=== PATIENT | female | born 1990 | race American Indian/Alaskan Native ===

== ENCOUNTER 2017-08-21 09:04 | Emergency (ER) | payer BC, OTHER ==
--- NOTE | 2017-08-21 09:13 | EDM.PDOC ---
ED HPI GENERAL MEDICAL PROBLEM - General Chief Complaint: Lower Extremity Injury/Pain Stated Complaint: BOIL ON RT KNEE; [id number] Time Seen by Provider: 08/21/17 09:13 Source of Information: Reports: Patient, RN, RN Notes Reviewed History Limitations: Reports: No Limitations - History of Present Illness INITIAL COMMENTS - FREE TEXT/NARRATIVE: Patient presents to the ER with c/o boils x2 to the right thigh. She states this has happened in the past and they were incised, drained, and packed. She was given antibiotics at that time. She states the pain began yesterday, possibly the day before. She denies fever, chills, sob, chest pain. She denies being bitten by an insect. Onset: Gradual Onset Date: 08/20/17 Location: Reports: Lower Extremity, Right Quality: Reports: Ache, Burning, Pressure, Same as Previous Episode Severity: Moderate Improves with: Reports: None Worsens with: Reports: None Associated Symptoms: Reports: No Other Symptoms Treatments TRANSPORTATION DIRECTOR: Reports: Acetaminophen Right Leg Pain Score (Numeric/FACES): 9 - Related Data Allergies Allergy/AdvReac Type Severity Reaction Status Date / Time No Known Allergies Allergy Verified 08/21/17 09:18 Home Meds: Home Meds . [No Known Home Meds] 11/04/13 [History] Past Medical History - Past Health History Medical/Surgical History: Denies Medical/Surgical History Endocrine/Metabolic History: Reports: Obesity/BMI 30+ Social & Family History - Family History Family Medical History: Noncontributory - Tobacco Use Smoking Status *Q: Never Smoker Years of Tobacco use: 1 Used Tobacco, but Quit: No Second Hand Smoke Exposure: Yes - Alcohol Use Days Per Week of Alcohol Use: 0 - Recreational Drug Use Recreational Drug Use: No - Living Situation & Occupation Living situation: Reports: Single, with Family Occupation: Employed ED ROS GENERAL - Review of Systems Review Of Systems: ROS reveals no pertinent complaints other than HPI. ED EXAM, SKIN/RASH Exam: See Below Exam Limited By: No Limitations General Appearance: Alert, WD/WN, No Apparent Distress Eye Exam: Bilateral Eye: Normal Inspection Ears: Normal External Exam, Normal Canal, Hearing Grossly Normal, Normal TMs Nose: Normal Inspection, Normal Mucosa, No Blood Throat/Mouth: Normal Inspection, Normal Lips, Normal Teeth, Normal Gums, Normal Oropharynx, Normal Voice, No Airway Compromise Head: Atraumatic, Normocephalic Neck: Normal Inspection, Supple, Non-Tender, Full Range of Motion Respiratory/Chest: No Respiratory Distress, Lungs Clear, Normal Breath Sounds, No Accessory Muscle Use, Chest Non-Tender Cardiovascular: Normal Peripheral Pulses, Regular Rate, Rhythm, No Edema, No Gallop, No JVD, No Murmur, No Rub Peripheral Pulses: 2+: Radial (L), Radial (R) GI/Abdominal: Normal Bowel Sounds, Soft, Non-Tender, No Organomegaly, No Distention, No Abnormal Bruit, No Mass (Female) Exam: Deferred Rectal (Female) Exam: Deferred Back Exam: Normal Inspection, Full Range of Motion, NT Extremities: Normal Range of Motion, No Pedal Edema, Leg Pain, Increased Warmth , Redness, Other (right thigh) Neurological: Alert, Oriented, Normal Cognition, Normal Gait, No Motor/Sensory Deficits Psychiatric: Normal Affect, Normal Mood Skin: Warm, Dry, Erythema Location, Skin: Lower Extremity, Right Characteristics: Erythematous Associated features: Warmth, Tenderness, Swelling Lymphatic: No Adenopathy ED SKIN PROCEDURES - I&D Skin Prep: Providone-Iodine (Betadine) Local Anesthesia: Lidocaine: 1% Plain Local Anesthetic Volume: 5cc Area Incised With: 11 Blade Drainage: Purulent, Bloody, Small Amount Probed to Break Up Loculations: Yes Packed With: 1/4 in. Iodoform Sterile Dressinx4(s) Complications: No Course - Vital Signs Last Recorded V/S: Last Vital Signs Temp 97.8 F 08/21/17 09:18 Pulse 114 H 08/21/17 09:18 Resp 18 08/21/17 09:18 BP 129/88 08/21/17 09:18 Pulse Ox 100 08/21/17 09:18 - Orders/Labs/Meds Orders: Active Orders 24 hr Category Date Time Status Peripheral IV Care [RC] . DIRECTED Care 08/21/17 10:08 Active CULTURE WOUND [RM] Stat Lab 08/21/17 10:27 Received Sodium Chloride 0.9% [Saline Flush] Med 08/21/17 10:08 Active 10 ml FLUSH ASDIRECTED PRN Vancomycin 1.5 gm Med 08/21/17 10:30 Active Sodium Chloride 0.9% [Normal Saline] 500 ml IV ONETIME Peripheral IV Insertion Adult [OM.PC] Stat Oth 08/21/17 10:08 Ordered Medication Orders Vancomycin HCl 1.5 gm/ Sodium (Chloride) 500 mls @ 334.014 mls/hr IV ONETIME ONE Stop: 08/21/17 11:59 Last Admin: 08/21/17 10:42 Dose: 334.014 mls/hr Sodium Chloride (Saline Flush) 10 ml FLUSH ASDIRECTED PRN PRN Reason: Keep Vein Open Last Admin: 08/21/17 10:42 Dose: 10 ml Meds: Medications Generic Name Dose Route Start Last Admin Trade Name Freq PRN Reason Stop Dose Admin Vancomycin HCl 1.5 gm/ Sodium 500 mls @ 334.014 mls/hr 08/21/17 10:30 10:42 Chloride IV 08/21/17 11:59 334.014 mls/hr ONETIME ONE Administration Sodium Chloride 10 ml 08/21/17 10:08 08/21/17 10:42 Saline Flush FLUSH 10 ml ASDIRECTED PRN Administration Keep Vein Open Discontinued Medications Generic Name Dose Route Start Last Admin Trade Name Freq PRN Reason Stop Dose Admin Vancomycin HCl 1.6 gm/ Sodium 250 mls @ 167 mls/hr 08/21/17 10:08 08/21/17 10 :33 Chloride IV 08/21/17 11:37 Not Given ONETIME ONE Lidocaine HCl 30 ml 08/21/17 09:45 08/21/17 10:02 Xylocaine-Mpf 1% INJECT 08/21/17 09:46 30 ml ONETIME ONE Administration Departure - Departure Time of Disposition: 12:00 Disposition: Home, Self-Care 01 Condition: Good Clinical Impression: Abscess of right leg - Discharge Information Instructions: Abscess, [id number], Incision and Drainage, Care After Forms: ED Department Discharge Additional Instructions: Rx: Bactrim DS Rx: Cephalexin 500mg Follow up with your primary care provider tomorrow. Change dressing/bandage twice daily. You may shower. If the packing falls out it is ok. This will be removed when rechecked tomorrow. - My Orders Last 24 Hours: My Active Orders 08/21/17 10:08 Peripheral IV Care [RC] . DIRECTED Sodium Chloride 0.9% [Saline Flush] 10 ml FLUSH ASDIRECTED PRN Peripheral IV Insertion Adult [OM.PC] Stat 08/21/17 10:27 CULTURE WOUND [RM] Stat 08/21/17 10:30 Vancomycin 1.5 gm Sodium Chloride 0.9% [Normal Saline] 500 ml IV ONETIME - Assessment/Plan Last 24 Hours: My Active Orders 08/21/17 10:08 Peripheral IV Care [RC] . DIRECTED Sodium Chloride 0.9% [Saline Flush] 10 ml FLUSH ASDIRECTED PRN Peripheral IV Insertion Adult [OM.PC] Stat 08/21/17 10:27 CULTURE WOUND [RM] Stat 08/21/17 10:30 Vancomycin 1.5 gm Sodium Chloride 0.9% [Normal Saline] 500 ml IV ONETIME
[2017-08-21 09:22] VITALS: BP 129/88
[2017-08-21] MEDS ORDERED: Lidocaine 1% 30 ML SDV INJECT ONE (09:45)
[2017-08-21] MEDS ORDERED: Sodium Chloride 0.9% 10 ML Syringe FLUSH PRN (10:08)
[2017-08-21] MEDS ORDERED: Vancomycin 1.6 GM in Sodium Chloride 0.9% 250 ML IV ONE (10:08)
[2017-08-21] MEDS ORDERED: Vancomycin 1.5 GM in Sodium Chloride 0.9% 500 ML IV ONE (10:30)
[2017-08-21] MEDS ORDERED: Acetaminophen 325 MG Tab PO ONE (12:20)
== END 2017-08-21 12:29 | disposition home or self-care (01) ==
LOC: DL.ED 09:04
DX: L02.415 Cutaneous abscess of right lower limb (principal); E66.9 Obesity, unspecified; Z68.42 Body mass index [BMI] 45.0-49.9, adult
CPT/HCPCS: 10061; 87070; 87077; 87186; 96365; 96366; 99283; A9270; J3370; J7040; J7050

== ENCOUNTER 2017-11-07 14:35 | Emergency (ER) | payer OTHER ==
[2017-11-07 14:45] VITALS: BP 138/89
--- NOTE | 2017-11-07 15:19 | EDM.PDOC ---
ED HPI GENERAL MEDICAL PROBLEM - General Chief Complaint: ENT Problem Stated Complaint: [id number] HAS A COLD Time Seen by Provider: 11/07/17 15:05 Source of Information: Reports: Patient History Limitations: Reports: No Limitations - History of Present Illness INITIAL COMMENTS - FREE TEXT/NARRATIVE: This 27 yo female patient reports to the ED with ED with a 2 day history of congestion. The patient took a dose of decongestant, but had no symptom relief. The patient reports she attempted to get into the [facility], but they were not taking appointments until next week and not taking walk-ins today. Onset Date: 11/06/17 Location: Reports: Head (congestion) Quality: Reports: Pressure Severity: Moderate Improves with: Reports: None Worsens with: Reports: None Associated Symptoms: Reports: No Other Symptoms Treatments CASTING COORDINATOR: Reports: Acetaminophen - Related Data Allergies Allergy/AdvReac Type Severity Reaction Status Date / Time No Known Allergies Allergy Verified 11/07/17 14:41 Home Meds: Home Meds . 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 - Infectious Disease History Infectious Disease History: Reports: Chicken Pox - Past Surgical History Female Surgical History: Reports: Section Social & Family History - Family History Family Medical History: Noncontributory - Tobacco Use Smoking Status *Q: Never Smoker Years of Tobacco use: 1 Used Tobacco, but Quit: No Month Tobacco Last Used: unknown Second Hand Smoke Exposure: No - Caffeine Use Caffeine Use: Reports: Coffee - Alcohol Use Days Per Week of Alcohol Use: 0 - Recreational Drug Use Recreational Drug Use: No - Living Situation & Occupation Living situation: Reports: Single, with Family Occupation: Employed ED ROS ENT - Review of Systems Review Of Systems: ROS reveals no pertinent complaints other than HPI. ED EXAM, ENT - Physical Exam Exam: See Below Exam Limited By: No Limitations General Appearance: Alert, WD/WN, No Apparent Distress, Obese Eye Exam: Bilateral Eye: EOMI, Normal Inspection, PERRL Ears: Normal External Exam, Normal Canal, Hearing Grossly Normal, Normal TMs Nose: Normal Inspection, Normal Mucousa, No Blood Mouth/Throat: Normal Inspection, Normal Gums, Normal Lips, Normal Oropharynx, Normal Teeth Head: Sinus Tenderness Neck: Normal Inspection, Supple, Non-Tender, Full Range of Motion Respiratory/Chest: No Respiratory Distress, Lungs Clear, Normal Breath Sounds, No Accessory Muscle Use, Chest Non-Tender Cardiovascular: Normal Peripheral Pulses, Regular Rate, Rhythm, No Edema, No Gallop, No JVD, No Murmur, No Rub GI/Abdominal: Normal Bowel Sounds, Soft, Non-Tender, No Organomegaly, No Distention, No Abnormal Bruit, No Mass, Other (obese) (Female) Exam: Deferred Rectal (Female) Exam: Deferred Back: Normal Inspection, Full Range of Motion Neurological: Alert, Oriented, CN II-XII Intact, Normal Cognition, Normal Gait, Normal Reflexes, No Motor/Sensory Deficits Psychiatric: Normal Affect, Normal Mood Skin: Warm, Dry, Intact, Normal Color, No Rash Lymphatic: No Adenopathy Course - Vital Signs Last Recorded V/S: Last Vital Signs Temp 36.6 C 11/07/17 14:43 Pulse 80 11/07/17 14:43 Resp 18 11/07/17 14:43 BP 138/89 11/07/17 14:43 Pulse Ox 99 11/07/17 14:43 Departure - Departure Time of Disposition: 15:20 Disposition: Home, Self-Care 01 Condition: Fair Clinical Impression: Sinusitis Qualifiers: Sinusitis location: maxillary Chronicity: acute Recurrence: non-recurrent Qualified Code(s): J01.00 - Acute maxillary sinusitis, unspecified - Discharge Information Instructions: Sinusitis, Adult, [id number] Care Plan Goals: The patient was advised of the examination results during the visit. The patient was given a script for Augmentin (875/125) to take 1 by mouth 2 times per day for 10 days. The patient may take over the counter medications for temporary symptom relief. If the patient has any additional symptoms or concerns , the patient should follow-up with her primary care facility or return to the ED.
== END 2017-11-07 15:25 | disposition home or self-care (01) ==
LOC: DL.ED 14:35
DX: J01.00 Acute maxillary sinusitis, unspecified (principal)
CPT/HCPCS: 99283

== ENCOUNTER 2018-08-24 22:51 | Emergency (ER) | payer OTHER ==
--- NOTE | 2018-08-24 23:12 | EDM.PDOC ---
ED HPI GENERAL MEDICAL PROBLEM - General Chief Complaint: Upper Extremity Injury/Pain Stated Complaint: FELL, PAIN-WC [id number] Time Seen by Provider: 08/24/18 23:09 Source of Information: Reports: Patient History Limitations: Reports: No Limitations - History of Present Illness INITIAL COMMENTS - FREE TEXT/NARRATIVE: slipped on wet floor fell onto low back with back pain and left hip area too. denies . got back up by self. Right Elbow Pain Score (Numeric/FACES): 8 - Related Data Allergies Allergy/AdvReac Type Severity Reaction Status Date / Time No Known Allergies Allergy Verified 08/24/18 23:39 Home Meds: Home Meds . 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 - Infectious Disease History Infectious Disease History: Reports: Chicken Pox - Past Surgical History Female Surgical History: Reports: Section Social & Family History - Family History Family Medical History: Noncontributory - Caffeine Use Caffeine Use: Reports: Coffee - Living Situation & Occupation Living situation: Reports: Single, with Family Occupation: Employed Review of Systems - Review of Systems Review Of Systems: ROS reveals no pertinent complaints other than HPI. ED EXAM, GENERAL - Physical Exam Exam: See Below Exam Limited By: No Limitations General Appearance: Alert, WD/WN, Mild Distress, Other (discomfort) Ears: Hearing Grossly Normal Throat/Mouth: Normal Voice, No Airway Compromise Head: Atraumatic Neck: Non-Tender, Full Range of Motion Respiratory/Chest: No Respiratory Distress Cardiovascular: Regular Rate, Rhythm GI/Abdominal: Soft, Non-Tender Back Exam: Paraspinal Tenderness, Other (left L3-4-5-S1 region, LLE NV wnl, gait limited to pain) Neurological: Alert, Oriented, Normal Cognition, No Motor/Sensory Deficits Psychiatric: Flat Affect Skin Exam: Warm, Dry, Normal Color Lymphatic: No Adenopathy Course - Vital Signs Last Recorded V/S: Last Vital Signs Temp 36.6 C 08/24/18 23:22 Pulse 90 08/24/18 23:22 Resp 18 08/24/18 23:22 BP 124/74 08/24/18 23:22 Pulse Ox 98 08/24/18 23:22 - Orders/Labs/Meds Meds: Medications Discontinued Medications Generic Name Dose Route Start Last Admin Trade Name Iqra PRN Reason Stop Dose Admin Hydrocodone Bitart/Acetaminophen 1 tab 08/25/18 01:20 08/25/18 01:29 [place] 325-10 Mg PO 08/25/18 01:21 1 tab ONETIME ONE Administration - Re-Assessments/Exams Free Text/Narrative Re-Assessment/Exam: 08/25/18 01:21 results discussed with pt. Departure - Departure Time of Disposition: 01:32 Disposition: Home, Self-Care 01 Condition: Good Clinical Impression: Lumbar contusion Qualifiers: Encounter type: initial encounter Qualified Code(s): S30.0XXA - Contusion of lower back and pelvis, initial encounter - Discharge Information Instructions: Contusion, [id number] Forms: ED Department Discharge Additional Instructions: 1) rest and avoid bending lifting straining next 48 hours 2) try ice or heat to sore areas 3) follow up at clinic rx given; flexeril 10mg bid to tid prn x 12
[2018-08-24 23:39] VITALS: BP 124/74
[2018-08-25] MEDS ORDERED: Acetaminophen/HYDROcodone 325-10 MG Tab PO ONE (01:20)
== END 2018-08-25 01:35 | disposition home or self-care (01) ==
LOC: DL.ED 22:51
DX: S30.0XXA Contusion of lower back and pelvis, initial encounter (principal); W01.0XXA Fall on same level from slipping, tripping and stumbling without subsequent striking against object, initial encounter
CPT/HCPCS: 72100; 73501; 99283; A9270

== ENCOUNTER 2019-10-26 04:00 | Emergency (ER) | payer OTHER ==
[2019-10-26 04:18] VITALS: BP 142/93; PULSE 82
--- NOTE | 2019-10-26 04:30 | EDM.PDOC ---
ED HPI GENERAL MEDICAL PROBLEM - General Chief Complaint: ENT Problem Stated Complaint: TOOTH PAIN Time Seen by Provider: 10/26/19 04:27 Source of Information: Reports: Patient History Limitations: Reports: No Limitations - History of Present Illness INITIAL COMMENTS - FREE TEXT/NARRATIVE: broke tooth while ago, got worse tonight Left Upper Oral/Mouth Pain Score (Numeric/FACES): 10 - Related Data Allergies Allergy/AdvReac Type Severity Reaction Status Date / Time No Known Allergies Allergy Verified 10/26/19 04:09 Home Meds: Home Meds Acetaminophen [Acetaminophen Extra Strength] 1,000 mg PO ASDIRECTED 10/26/19 [ History] Past Medical History - Past Health History Medical/Surgical History: Denies Medical/Surgical History Genitourinary History: Reports: 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 - Infectious Disease History Infectious Disease History: Reports: Chicken Pox - Past Surgical History Female Surgical History: Reports: Section Social & Family History - Family History Family Medical History: Noncontributory - Tobacco Use Smoking Status *Q: Current Every Day Smoker Years of Tobacco use: 2 Packs/Tins Daily: 0.2 Used Tobacco, but Quit: No Second Hand Smoke Exposure: No - Caffeine Use Caffeine Use: Reports: Coffee, Energy Drinks, Soda - Recreational Drug Use Recreational Drug Use: No - Living Situation & Occupation Living situation: Reports: Single, with Family Occupation: Employed ED ROS ENT - Review of Systems Review Of Systems: Comprehensive ROS is negative, except as noted in HPI. ED EXAM, ENT - Physical Exam Exam: See Below Exam Limited By: No Limitations General Appearance: Alert, WD/WN, Mild Distress, Other (pain) Ears: Hearing Grossly Normal Mouth/Throat: Dental Abcess, Dental Pain, Dental Tenderness, Other (left upper cannine broke with exposed root) Head: Atraumatic Neck: Non-Tender, Full Range of Motion Respiratory/Chest: No Respiratory Distress Cardiovascular: Regular Rate, Rhythm GI/Abdominal: Soft, Non-Tender Neurological: Alert, Oriented, Normal Cognition, Normal Gait, No Motor/Sensory Deficits Psychiatric: Tearful Skin: Warm, Dry, Normal Color Lymphatic: No Adenopathy Course - Vital Signs Last Recorded V/S: Last Vital Signs Temp 36.4 C 10/26/19 04:07 Pulse 82 10/26/19 04:07 Resp 18 10/26/19 04:07 BP 142/93 H 10/26/19 04:07 Pulse Ox 99 10/26/19 04:07 - Orders/Labs/Meds Orders: Active Orders 24 hr Category Date Time Status Acetaminophen/HYDROcodone [[place] 325-10 MG] Med 10/26/19 04:25 Once 1 tab PO ONETIME ONE Clindamycin HCl [Cleocin] Med 10/26/19 04:25 Once 150 mg PO ONETIME ONE Departure - Departure Time of Disposition: 04:29 Disposition: Home, Self-Care 01 Condition: Good Clinical Impression: Dental abscess, Dental caries - Discharge Information Instructions: Dental Abscess, [id number] Additional Instructions: 1) see DENTIST SUNDAY rx given; clindamycin 150mg qid x 40 - My Orders Last 24 Hours: My Active Orders 10/26/19 04:25 Acetaminophen/HYDROcodone [[place] 325-10 MG] 1 tab PO ONETIME ONE Clindamycin HCl [Cleocin] 150 mg PO ONETIME ONE - Assessment/Plan Last 24 Hours: My Active Orders 10/26/19 04:25 Acetaminophen/HYDROcodone [[place] 325-10 MG] 1 tab PO ONETIME ONE Clindamycin HCl [Cleocin] 150 mg PO ONETIME ONE
[2019-10-26] MEDS: Clindamycin HCl 150 MG Cap PO ONE (04:33)
[2019-10-26] MEDS: Acetaminophen/HYDROcodone 325-10 MG Tab PO ONE (04:34)
== END 2019-10-26 04:45 | disposition home or self-care (01) ==
LOC: DL.ED 04:00
DX: K04.7 Periapical abscess without sinus (principal); K02.9 Dental caries, unspecified; E66.9 Obesity, unspecified; Z68.42 Body mass index [BMI] 45.0-49.9, adult; F17.210 Nicotine dependence, cigarettes, uncomplicated
CPT/HCPCS: 99282; A9270

== ENCOUNTER 2020-01-08 03:43 | Emergency (ER) | payer OTHER ==
[2020-01-08 03:49] VITALS: BP 151/97; PULSE 80
[2020-01-08] MEDS ORDERED: Lidocaine 2% Viscous Solution 15 ML Cup PO ONE (03:58)
[2020-01-08] MEDS ORDERED: Clindamycin HCl 150 MG Cap PO ONE (03:58)
--- NOTE | 2020-01-08 04:04 | EDM.PDOC ---
ED HPI GENERAL MEDICAL PROBLEM - General Chief Complaint: ENT Problem Stated Complaint: TOOTH PAIN Time Seen by Provider: 01/08/20 03:45 Source of Information: Reports: Patient History Limitations: Reports: No Limitations - History of Present Illness INITIAL COMMENTS - FREE TEXT/NARRATIVE: This 29 yo female patient reports to the ED with right upper dental pain. The patient reports her tooth broke off 3-4 days ago, but yesterday afternoon she started to have increased pain. The patient reports she has taken Tylenol with little symptom relief. 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 BATHER: Reports: Acetaminophen Right Upper Gums Pain Score (Numeric/FACES): 10 - Related Data Allergies Allergy/AdvReac Type Severity Reaction Status Date / Time No Known Allergies Allergy Verified 01/08/20 03:49 Home Meds: Home Meds Acetaminophen [Acetaminophen Extra Strength] 1,000 mg PO ASDIRECTED 10/26/19 [ History] Past Medical History - Past Health History Medical/Surgical History: Denies Medical/Surgical History Genitourinary History: Reports: 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 - Infectious Disease History Infectious Disease History: Reports: Chicken Pox - Past Surgical History Female Surgical History: Reports: Section Social & Family History - Family History Family Medical History: Noncontributory - Tobacco Use Smoking Status *Q: Current Every Day Smoker Years of Tobacco use: 5 Packs/Tins Daily: 0.2 Second Hand Smoke Exposure: Yes - Caffeine Use Caffeine Use: Reports: Coffee, Energy Drinks, Soda - Recreational Drug Use Recreational Drug Use: No - Living Situation & Occupation Living situation: Reports: Single, with Family Occupation: Employed ED ROS ENT - Review of Systems Review Of Systems: Comprehensive ROS is negative, except as noted in HPI. ED EXAM, ENT - Physical Exam Exam: See Below Exam Limited By: No Limitations General Appearance: Alert, WD/WN, Mild Distress, Obese Eye Exam: Bilateral Eye: EOMI, Normal Inspection, PERRL Ears: Normal External Exam, Normal Canal, Hearing Grossly Normal, Normal TMs Nose: Normal Inspection, Normal Mucousa, No Blood Mouth/Throat: Dental Abcess, Dental Pain, Dental Tenderness Head: Atraumatic, Normocephalic Neck: Normal Inspection, Supple, Non-Tender, Full Range of Motion Respiratory/Chest: No Respiratory Distress, Lungs Clear, Normal Breath Sounds, No Accessory Muscle Use, Chest Non-Tender Cardiovascular: Normal Peripheral Pulses GI/Abdominal: Normal Bowel Sounds, Soft, Non-Tender, No Organomegaly, No Distention, No Abnormal Bruit, No Mass, Other (obese) (Female) Exam: Deferred Rectal (Female) Exam: Deferred Neurological: Alert, Oriented, CN II-XII Intact, Normal Cognition, Normal Gait Psychiatric: Normal Affect, Normal Mood Skin: Warm, Dry, Intact, Normal Color, No Rash Lymphatic: No Adenopathy Course - Vital Signs Last Recorded V/S: Last Vital Signs Temp 35.8 C L 01/08/20 03:45 Pulse 80 01/08/20 03:45 Resp 18 01/08/20 03:45 BP 151/97 H 01/08/20 03:45 Pulse Ox 100 01/08/20 03:45 - Orders/Labs/Meds Meds: Medications Discontinued Medications Generic Name Dose Route Start Last Admin Trade Name Iqra PRN Reason Stop Dose Admin Clindamycin HCl 300 mg 01/08/20 03:58 01/08/20 04:04 Cleocin PO 01/08/20 03:59 300 mg ONETIME ONE Administration Lidocaine HCl 15 ml 01/08/20 03:58 Xylocaine 2% Viscous PO 01/08/20 03:59 ONETIME ONE Departure - Departure Time of Disposition: 04:01 Disposition: Home, Self-Care 01 Condition: Fair Clinical Impression: Dental decay, Dental caries extending into dentin, Dental abscess - Discharge Information *PRESCRIPTION DRUG MONITORING PROGRAM REVIEWED*: Not Applicable *COPY OF PRESCRIPTION DRUG MONITORING REPORT IN PATIENT MARLEN: Not Applicable Instructions: Dental Abscess, [id number] Forms: ED Department Discharge Care Plan Goals: The patient was advised of the examination results during the visit. The patient was given a dose of Viscous Lidocaine and a dose of Clindamycin while in the ED. The patient was also given a script for Clindamycin (300 mg) to take 1 by mouth 4 times per day for 10 days and Viscous Lidocaine 2% #100 mL to use 5-10 mL on a cottonball applied to area every 6 hours as needed. The patient was encouraged to follow-up with a dentist early this week for continued evaluation and further management. If the patient has any additional symptoms or concerns, the patient should either follow-up with her primary care facility or return to the emergency department. Sepsis Event Note - Evaluation Sepsis Screening Result: No Definite Risk - Focused Exam Vital Signs: Vital Signs Temp Pulse Resp BP Pulse Ox 01/08/20 03:45 35.8 C L 80 18 151/97 H 100 Date Exam was Performed: 01/08/20 Time Exam was Performed: 04:05
== END 2020-01-08 04:09 | disposition home or self-care (01) ==
LOC: DL.ED 03:43
DX: K04.7 Periapical abscess without sinus (principal); K02.9 Dental caries, unspecified; E66.9 Obesity, unspecified; F17.210 Nicotine dependence, cigarettes, uncomplicated; Z68.42 Body mass index [BMI] 45.0-49.9, adult
CPT/HCPCS: 99282; A9270

== ENCOUNTER 2020-05-15 06:09 | Emergency (ER) | payer OTHER ==
[2020-05-15] MEDS ORDERED: Lidocaine 2% Viscous Solution 15 ML Cup PO ONE (06:10)
[2020-05-15 06:16] VITALS: BP 155/89; PULSE 89
[2020-05-15] MEDS ORDERED: Amoxicillin 500 MG Cap PO ONE (06:47)
[2020-05-15] MEDS ORDERED: Ibuprofen 600 MG Tab PO ONE (06:47)
[2020-05-15] MEDS ORDERED: Lidocaine 2% Viscous Solution 15 ML Cup ONE (06:53)
--- NOTE | 2020-05-15 06:56 | EDM.PDOC ---
ED HPI GENERAL MEDICAL PROBLEM - General Chief Complaint: ENT Problem Stated Complaint: LOWER BACK TOOTH HURTS Time Seen by Provider: 05/15/20 06:30 Source of Information: Reports: Patient History Limitations: Reports: No Limitations - History of Present Illness INITIAL COMMENTS - FREE TEXT/NARRATIVE: ED with c/o left lower dental pain, States pain worse past couple of days, Attempted to be seen by dentist on Sunday but was late for appointment so was not seen. Pain in area for one year. 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 - Infectious Disease History Infectious Disease History: Reports: Chicken Pox - Past Surgical History Female Surgical History: Reports: Section Social & Family History - Family History Family Medical History: Noncontributory - Tobacco Use Smoking Status *Q: Former Smoker Used Tobacco, but Quit: No - Caffeine Use Caffeine Use: Reports: Coffee, Energy Drinks, Soda, Tea - Recreational Drug Use Recreational Drug Use: No - Living Situation & Occupation Living situation: Reports: Single, with Family Occupation: Employed ED ROS ENT - Review of Systems Review Of Systems: See Below Constitutional: Denies: Fever, Chills HEENT: Reports: Dental Pain Respiratory: Reports: No Symptoms Cardiovascular: Reports: No Symptoms Endocrine: Reports: No Symptoms GI/Abdominal: Reports: No Symptoms Musculoskeletal: Reports: No Symptoms Skin: Reports: No Symptoms Neurological: Reports: No Symptoms ED EXAM, ENT - Physical Exam Exam: See Below Exam Limited By: No Limitations General Appearance: Alert, Mild Distress Eye Exam: Bilateral Eye: EOMI Ears: Normal External Exam, Hearing Grossly Normal. No: Mastoid Swelling, Mastoid Tenderness Nose: Normal Inspection Mouth/Throat: Dental Abcess, Dental Pain (left lower 2nd molar lateral posterior edge , general poor dentation), Dental Tenderness Head: Atraumatic, Normocephalic Neck: Normal Inspection, Supple, Lymphadenopathy (L) Respiratory/Chest: No Respiratory Distress, Lungs Clear, Normal Breath Sounds Cardiovascular: Normal Peripheral Pulses, Regular Rate, Rhythm GI/Abdominal: Normal Bowel Sounds, Soft Back: Full Range of Motion Extremities: Normal Inspection, Normal Range of Motion Neurological: Alert, Oriented, Normal Cognition Psychiatric: Normal Affect, Normal Mood Skin: Warm, Dry, Intact, Normal Color Course - Vital Signs Last Recorded V/S: Last Vital Signs Temp 97.1 F 05/15/20 06:14 Pulse 89 05/15/20 06:14 Resp 16 05/15/20 06:14 BP 155/89 H 05/15/20 06:14 Pulse Ox 98 05/15/20 06:14 - Orders/Labs/Meds Meds: Medications Discontinued Medications Generic Name Dose Route Start Last Admin Trade Name Freq PRN Reason Stop Dose Admin Amoxicillin 500 mg 05/15/20 06:47 05/15/20 06:53 Amoxil PO 05/15/20 06:48 500 mg ONETIME ONE Administration Ibuprofen 600 mg 05/15/20 06:47 05/15/20 06:52 Motrin PO 05/15/20 06:48 600 mg ONETIME ONE Administration Lidocaine HCl Confirm 05/15/20 06:53 Xylocaine 2% Viscous Administered 05/15/20 06:54 Dose 15 ml .ROUTE .STK-MED ONE Departure - Departure Time of Disposition: 06:58 Disposition: Home, Self-Care 01 Condition: Good Clinical Impression: Dental caries, Abscess of right leg - Discharge Information *PRESCRIPTION DRUG MONITORING PROGRAM REVIEWED*: No *COPY OF PRESCRIPTION DRUG MONITORING REPORT IN PATIENT MARLEN: No Instructions: Benzocaine mouth gel, ointment, solution, or dental paste Forms: ED Department Discharge Additional Instructions: alternate tylenol and ibuprofen every 4 hours as needed for discomfort avoid extreme temperatures of liquids chew on opposite side amoxicillin 500mg one three times daily for 10 days follow with dentist Sepsis Event Note (ED) - Evaluation Sepsis Screening Result: No Definite Risk - Focused Exam Vital Signs: Vital Signs Temp Pulse Resp BP Pulse Ox 05/15/20 06:14 97.1 F 89 16 155/89 H 98
== END 2020-05-15 07:10 | disposition home or self-care (01) ==
LOC: DL.ED 06:09
DX: K02.9 Dental caries, unspecified (principal); L02.415 Cutaneous abscess of right lower limb; K04.7 Periapical abscess without sinus; E66.9 Obesity, unspecified; Z68.42 Body mass index [BMI] 45.0-49.9, adult; Z87.891 Personal history of nicotine dependence
CPT/HCPCS: 99282; A9270

== ENCOUNTER 2020-05-17 18:33 | Emergency (ER) | payer OTHER ==
[2020-05-17 19:07] VITALS: BP 128/83; PULSE 100
[2020-05-17] MEDS ORDERED: Ketorolac 30 MG/ML SDV IM ONE (19:19)
--- NOTE | 2020-05-17 19:25 | EDM.PDOC ---
ED HPI GENERAL MEDICAL PROBLEM - General Chief Complaint: General Stated Complaint: TOOTHACHE PAIN Time Seen by Provider: 05/17/20 19:15 Source of Information: Reports: Patient History Limitations: Reports: No Limitations - History of Present Illness INITIAL COMMENTS - FREE TEXT/NARRATIVE: This 30 yo female patient reports to the ED with left 2nd molar pain. The patient reports she was seen in the ED on Sunday and seen by the dentist today for an abscessed tooth. The patient was advised by the dentist to continue on the antibiotics as prescribed and use OTC medications for temporary symptom relief. 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: Acetaminophen (last dose 2 hours ago), NSAIDS (last dose at 1000 this morning) Left Lower Tooth/Teeth Pain Score (Numeric/FACES): 10 - Related Data Allergies Allergy/AdvReac Type Severity Reaction Status Date / Time No Known Allergies Allergy Verified 05/15/20 06:24 Home Meds: Home Meds Acetaminophen [Acetaminophen Extra Strength] 1,000 mg PO ASDIRECTED 10/26/19 [History] Past Medical History - Past Health History Medical/Surgical History: Denies Medical/Surgical History HEENT History: Reports: Other (See Below) Other HEENT History: dental caries Genitourinary History: Reports: None 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 - Infectious Disease History Infectious Disease History: Reports: Chicken Pox - Past Surgical History Female Surgical History: Reports: Section Social & Family History - Family History Family Medical History: Noncontributory - Tobacco Use Smoking Status *Q: Unknown Ever Smoked Second Hand Smoke Exposure: No - Caffeine Use Caffeine Use: Reports: Coffee, Soda - Recreational Drug Use Recreational Drug Use: No - Living Situation & Occupation Living situation: Reports: Single, with Family Occupation: Employed ED ROS GENERAL - Review of Systems Review Of Systems: Comprehensive ROS is negative, except as noted in HPI. ED EXAM, GENERAL - Physical Exam Exam: Not Obtained Exam Limited By: No Limitations General Appearance: Alert, WD/WN, Moderate Distress, Obese Eye Exam: Bilateral Eye: EOMI, Normal Inspection, PERRL Ears: Normal External Exam, Normal Canal, Hearing Grossly Normal, Normal TMs Nose: Normal Inspection, Normal Mucosa, No Blood Throat/Mouth: Other (dental decay of left 2nd molar with mild erythema to the surrounding tissue) Head: Atraumatic, Normocephalic Neck: Normal Inspection, Supple, Non-Tender, Full Range of Motion Respiratory/Chest: No Respiratory Distress, Lungs Clear, Normal Breath Sounds, No Accessory Muscle Use, Chest Non-Tender Cardiovascular: Normal Peripheral Pulses, Regular Rate, Rhythm, No Edema, No Gallop, No JVD, No Murmur, No Rub GI/Abdominal: Normal Bowel Sounds, Soft, Non-Tender, No Organomegaly, No Distention, No Abnormal Bruit, No Mass (Female) Exam: Deferred Rectal (Female) Exam: Deferred Back Exam: Normal Inspection, Full Range of Motion, NT Extremities: Normal Inspection, Normal Range of Motion, Non-Tender, Normal Capillary Refill, No Pedal Edema Neurological: Alert, Oriented, CN II-XII Intact, Normal Cognition, Normal Gait, Normal Reflexes, No Motor/Sensory Deficits Psychiatric: Normal Affect, Normal Mood Skin Exam: Warm, Dry, Intact, Normal Color, No Rash Lymphatic: No Adenopathy Course - Vital Signs Last Recorded V/S: Last Vital Signs Temp 36.7 C 05/17/20 19:07 Pulse 100 05/17/20 19:07 Resp 16 05/17/20 19:07 BP 128/83 05/17/20 19:07 Pulse Ox 98 05/17/20 19:07 - Orders/Labs/Meds Meds: Medications Discontinued Medications Generic Name Dose Route Start Last Admin Trade Name Freq PRN Reason Stop Dose Admin Ketorolac Tromethamine 60 mg 05/17/20 19:19 Toradol IM 05/17/20 19:20 ONETIME ONE Departure - Departure Time of Disposition: 19:25 Disposition: Home, Self-Care 01 Condition: Fair Clinical Impression: Dental abscess - Discharge Information *PRESCRIPTION DRUG MONITORING PROGRAM REVIEWED*: Not Applicable *COPY OF PRESCRIPTION DRUG MONITORING REPORT IN PATIENT MARLEN: Not Applicable Instructions: Dental Abscess, [id number] Care Plan Goals: The patient was advised of the examination results during the visit. The patient was given an injection of Toradol while in the ED and discharged with a script for Toradol (10 mg) #20 to take 1 by mouth every 6 hours. The patient was advised to continue to take Tylenol as directed. If the patient has any additional symptoms or concerns with her tooth, the patient should follow-up with her dentist or primary care facility. Sepsis Event Note (ED) - Evaluation Sepsis Screening Result: No Definite Risk - Focused Exam Vital Signs: Vital Signs Temp Pulse Resp BP Pulse Ox 05/17/20 19:07 36.7 C 100 16 128/83 98
== END 2020-05-17 19:31 | disposition home or self-care (01) ==
LOC: DL.ED 18:33
DX: K04.7 Periapical abscess without sinus (principal); K02.9 Dental caries, unspecified; E66.9 Obesity, unspecified
CPT/HCPCS: 96372; 99282; J1885

== ENCOUNTER 2021-04-22 15:44 | Emergency (ER) | payer MEDICAID, OTHER ==
[2021-04-22 16:36] VITALS: BP 152/98; PULSE 110
--- NOTE | 2021-04-22 17:56 | EDM.PDOC ---
ED HPI GENERAL MEDICAL PROBLEM - General Chief Complaint: Genitourinary Problem Stated Complaint: PELVIC AREA BUMPS?"SWOLLEN AND PAINFUL"?? Time Seen by Provider: 04/22/21 17:30 Source of Information: Reports: Patient, RN History Limitations: Reports: No Limitations - History of Present Illness INITIAL COMMENTS - FREE TEXT/NARRATIVE: ED with c/o vaginal discharge itching for 3 days, tried Monistat cream, not helping, gaby area sore feels swollen, glands feel swollen. N fever. no hx diabetes. no concern for STD. One prior yeast infection few years ago. 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 - Infectious Disease History Infectious Disease History: Reports: Chicken Pox - Past Surgical History Female Surgical History: Reports: Section Social & Family History - Family History Family Medical History: No Pertinent Family History - Tobacco Use Tobacco Use Status *Q: Never Tobacco User - Caffeine Use Caffeine Use: Reports: Coffee, Soda - Recreational Drug Use Recreational Drug Use: No - Living Situation & Occupation Living situation: Reports: Single, with Family Occupation: Employed ED ROS GENERAL - Review of Systems Review Of Systems: Comprehensive ROS is negative, except as noted in HPI. ED EXAM, RENAL/ - Physical Exam Exam: See Below Exam Limited By: No Limitations General Appearance: Alert, Mild Distress Throat/Mouth: Normal Voice Head: Atraumatic, Normocephalic Neck: Normal Inspection Respiratory/Chest: Normal Breath Sounds Cardiovascular: Regular Rate, Rhythm (Female) Exam: Other (excoriation of labia and gaby, small superficial abscess left upper mons, mild inguinal lymphadenopathy, vaginal gaytan red, cervix friable). No: Vaginal Tears Extremities: Normal Inspection Course - Vital Signs Last Recorded V/S: Last Vital Signs Temp 98 F 04/22/21 16:35 Pulse 110 H 04/22/21 16:35 Resp 16 04/22/21 16:35 BP 152/98 H 04/22/21 16:35 Pulse Ox 98 04/22/21 16:35 - Orders/Labs/Meds Orders: Active Orders 24 hr Category Date Time Status CHLAMYDIA AND GONORRHEA BY [facility] Urgent Lab 04/22/21 17:01 Received Labs: Laboratory Tests 04/22/21 Range/Units 17:01 Urine Color Yellow (YELLOW) Urine Appearance Turbid (CLEAR) Urine pH 6.5 (5.0-9.0) Ur Specific [place] 1.020 (1.005-1.030) Urine Protein Trace H (NEGATIVE) Urine Glucose (UA) 500 H (NEGATIVE) Urine Ketones Negative (NEGATIVE) Urine Occult Blood Moderate H (NEGATIVE) Urine Nitrite Negative (NEGATIVE) Urine Bilirubin Negative (NEGATIVE) Urine Urobilinogen 0.2 (0.2-1.0) mg/dL Ur Leukocyte Esterase Negative (NEGATIVE) Urine RBC 75-100 H /HPF Urine WBC 0-5 (0-5/HPF) /HPF Ur Epithelial Cells Many H (NOT SEEN) /HPF Amorphous Sediment Moderate H (NOT SEEN) /HPF Urine Bacteria Few (0-FEW/HPF) /HPF Urine Mucus Moderate H (NOT SEEN) /LPF Urine Other See note Departure - Departure Time of Disposition: 17:53 Disposition: Home, Self-Care 01 Condition: Good Clinical Impression: Lilian infection, Bacterial vaginal infection - Discharge Information *PRESCRIPTION DRUG MONITORING PROGRAM REVIEWED*: No *COPY OF PRESCRIPTION DRUG MONITORING REPORT IN PATIENT MARLEN: No Instructions: Bacterial Vaginosis, [id number], Skin Yeast Infection Additional Instructions: cool compress to area increase fluids clindamycin 300mg twice daily for one week nystatin to labia/ gaby area twice daily diflucan 150mg every 3rd day for 3 doses clinic follow up if not improving Sepsis Event Note (ED) - Evaluation Sepsis Screening Result: No Definite Risk - Focused Exam Vital Signs: Vital Signs Temp Pulse Resp BP Pulse Ox 04/22/21 16:35 98 F 110 H 16 152/98 H 98 - My Orders Last 24 Hours: My Active Orders 04/22/21 17:01 CHLAMYDIA AND GONORRHEA BY [facility] Urgent - Assessment/Plan Last 24 Hours: My Active Orders 04/22/21 17:01 CHLAMYDIA AND GONORRHEA BY [facility] Urgent
[2021-04-27 11:41] LABS: C.TRACHOMATIS BY TMA Negative (Negative); N.GONORRHOEAE BY TMA Negative (Negative)
== END 2021-04-22 18:06 | disposition home or self-care (01) ==
LOC: DL.ED 15:44
DX: B37.3 Candidiasis of vulva and vagina (principal); N76.0 Acute vaginitis; B96.89 Other specified bacterial agents as the cause of diseases classified elsewhere; E66.9 Obesity, unspecified; Z68.42 Body mass index [BMI] 45.0-49.9, adult
CPT/HCPCS: 81001; 87210; 87491; 87591; 99283

== ENCOUNTER 2022-06-13 17:43 | Emergency (ER) | payer SELFPAY ==
[2022-06-13] MEDS: Fluconazole 100 MG Tab PO ONE (20:30)
[2022-06-13 20:32] VITALS: BP 164/79; PULSE 89
== END 2022-06-13 20:31 | disposition home or self-care (01) ==
LOC: DL.ED 17:43
DX: B37.3 Candidiasis of vulva and vagina (principal); R81 Glycosuria; F17.210 Nicotine dependence, cigarettes, uncomplicated; E66.9 Obesity, unspecified; Z68.30 Body mass index [BMI] 30.0-30.9, adult
CPT/HCPCS: 81001; 87086; 87088; 87186; 99283; A9270-GY

== ENCOUNTER 2023-10-28 16:25 | Emergency (ER) | payer OTHER ==
[2023-10-28 17:56] LABS: CORONAVIRUS COVID-19 NAA NEGATIVE (NEGATIVE); INFLUENZA A NAA NEGATIVE (NEGATIVE); INFLUENZA B NAA NEGATIVE (NEGATIVE); RESPIRATORY SYNCYTIAL VIR NAA NEGATIVE (NEGATIVE)
[2023-10-28 19:32] VITALS: BP 144/108; PULSE 90
[2023-10-28] MEDS ORDERED: Amoxicillin 500 MG Cap PO ONE (19:38)
[2023-10-28] MEDS ORDERED: guaiFENesin 100 MG/5 ML Soln 5 ML UD Cup PO ONE (19:38)
== END 2023-10-28 19:52 | disposition home or self-care (01) ==
LOC: DL.ED 16:25
DX: H66.90 Otitis media, unspecified, unspecified ear (principal); Z87.891 Personal history of nicotine dependence; Z20.822 Contact with and (suspected) exposure to COVID-19; Z86.16 Personal history of COVID-19
CPT/HCPCS: 0241U; 87081; 87430; 99282; 99283; A9270-GY

== ENCOUNTER 2024-03-12 21:27 | Emergency (ER) | payer OTHER ==
[2024-03-12 22:10] VITALS: PULSE 98
[2024-03-12] MEDS: Gentamicin 0.3% Ophth Soln 5 ML Bottle EYEBOTH ONE (22:22)
[2024-03-12] MEDS: Take Home: Benzonatate 100 MG, 6 Cap Pack PO ONE (22:23)
[2024-03-12 22:30] VITALS: BP 121/88
== END 2024-03-12 22:33 | disposition home or self-care (01) ==
LOC: DL.ED 21:27
DX: J06.9 Acute upper respiratory infection, unspecified (principal); H10.023 Other mucopurulent conjunctivitis, bilateral; Z86.16 Personal history of COVID-19; Z79.899 Other long term (current) drug therapy
CPT/HCPCS: 99283; A9270-GY

== ENCOUNTER 2024-12-29 18:27 | Emergency (ER) | payer OTHER, MEDICAID | END 2024-12-29 19:30 | disposition left against medical advice (07) | LOC: DL.ED 18:27 | DX: Z53.21 Procedure and treatment not carried out due to patient leaving prior to being seen by health care provider (principal) ==

== ENCOUNTER 2025-07-22 15:46 | Emergency (ER) | payer BC, MEDICAID, OTHER ==
[2025-07-22] MEDS ORDERED: Sodium Chloride 0.9% 10 ML Syringe FLUSH PRN (15:55)
[2025-07-22 16:13] LABS: BASOPHILS PERCENT AUTO 0.4 % (0.0-1.0); EOSINOPHILS PERCENT AUTO 2.4 % (1.0-3.0); LYMPHOCYTES PERCENT AUTO 25.9 % (20.5-50.1); MONOCYTES PERCENT AUTO 8.5 % (2-8); NEUTROPHILS PERCENT AUTO 62.8 % (42.2-75.2); PLATELET COUNT,PLT 406 10^3/uL (150-450); RED BLOOD CELL COUNT 5.05 10^6/uL (4.2-5.4); WHITE BLOOD CELL COUNT,WBC 11.1 10^3/uL (5.0-10.0)
[2025-07-22 16:13] LABS: APPEARANCE,URINE CLEAR (CLEAR); GLUCOSE,URINE NEGATIVE (NEGATIVE); OCCULT BLOOD,URINE TRACE-INTACT (NEGATIVE)
[2025-07-22 16:24] LABS: EPITHELIAL CELLS,URINE FEW /HPF (NOT SEEN)
[2025-07-22 16:32] LABS: A/G RATIO 0.9; ALANINE AMINOTRANSFERASE,ALT 26 U/L (14-59); ASPARTATE AMNIOTRANSFERASE,AST 14 U/L (15-37); BILIRUBIN TOTAL 0.2 mg/dL (0.2-1.0); BLOOD UREA NITROGEN,BUN 10 mg/dL (7-18); CARBON DIOXIDE,CO2 28 mmol/L (21-32); CHLORIDE,CL 100 mmol/L (98-107); CREATININE 0.52 mg/dL (0.55-1.02); GLUCOSE RANDOM 149 mg/dL (70-99); POTASSIUM,K 3.6 mmol/L (3.5-5.1); PROTEIN TOTAL,TP 8.2 g/dL (6.4-8.2); SODIUM,NA 137 mmol/L (136-145)
[2025-07-22 16:33] LABS: ESTIMATED GFR 125 mL/min (>=60)
[2025-07-22 16:39] VITALS: BP 104/68; PULSE 98
[2025-07-22] MEDS: Iopamidol 612 MG/ML 100 ML Bottle IVPUSH ONE (16:51)
[2025-07-22] MEDS: Ketorolac 30 MG/ML SDV IVPUSH ONE (16:51)
[2025-07-22] MEDS: Ondansetron 4 MG/2 ML SDV IVPUSH ONE (16:51)
== END 2025-07-22 17:46 | disposition home or self-care (01) ==
LOC: DL.ED 15:46
DX: N39.0 Urinary tract infection, site not specified (principal); Z79.899 Other long term (current) drug therapy; Z86.16 Personal history of COVID-19
CPT/HCPCS: 36415; 74177; 80053; 81001; 81025; 83690; 85025; 96374; 96375; 99284; A9270; J1885; J2405; Q9967